=== PATIENT | female | born 1945 | race Caucasian/White ===

== ENCOUNTER 2019-07-14 07:49 | Outpatient (CLI) | payer MEDICARE, MEDICAID, SELFPAY ==
--- NOTE | 2019-07-14 07:58 | MR_ITS ---
WS: [id number] MRI LUMBAR SPINE NONCONTRAST TECHNIQUE: Sagittal T1, T2 and STIR imaging. Axial T1 and T2 imaging. CLINICAL INFORMATION: LOW BACK PAIN COMPARISON: None. FINDINGS: Mild lumbar curve convex left. Slight anterolisthesis L4 on L5. Disc space narrowing worse L4-5. L1-L2: Normal. L2-L3: Mild annular bulging. Mild facet arthropathy. Spinal canal and foramen are patent. L3-L4: Mild disc bulging with narrowing of the left greater than right subarticular recess. Slight im pingement traversing left L4 nerve root. Mild right foraminal narrowing. Mild central canal stenosis. Mild facet arthropathy. L4-L5: Slight anterolisthesis L4 on L5. Disc bulging in combination with moderate facet arthropathy a nd ligamentum flavum hypertrophy results in moderate central canal stenosis. Impingement on the trave rsing left L5 nerve root. Mild right foraminal narrowing. L5-S1: Mild annular bulging. Advanced arthropathy. Tiny facet effusions. Spinal canal and foramen ar e patent. Visualized pelvic bony structures: Normal. Paravertebral soft tissues: Normal. MR/MR lumbar spine wo con* [id number] IMPRESSION: 1. Mild lumbar curve. No acute compression. 2. Mild central canal stenosis L3-4 and moderate central canal stenosis L4-5. 3. Impingement on the left L3-4 subarticular recess and bilateral L4-5 subarti cular recess. 4. Mild right L3-4 and L4-5 foraminal narrowing. 5. Moderate facet arthropathy L4-L5 and L5-S1.
--- NOTE | 2019-07-14 07:58 | XR_ITS ---
WS: [id number] LUMBAR SPINE FLEXION AND EXTENSION TECHNIQUE: 3 views of the lumbar spine: Lateral neutral, flexion, and extension views. CLINICAL INFORMATION: SPONDYLOLISTHESIS LUMBAR REGION COMPARISON: None. FINDINGS: Slight anterolisthesis L4 on L5 measuring 4 mm in neutral position. No significant instability on fle xion-extension. Disc space narrowing worse at L3-L4 and L4-L5. Aortic calcification. XR/XR lumbar spine f/e only [id number] IMPRESSION: 4 mm anterolisthesis L4 on L5. No significant instability on flexion-extension.
== END 2019-07-14 07:50 | disposition home or self-care (01) ==
LOC: RADWPI 07:56
PROVIDERS: Family Provider Family Medicine; PCP Family Medicine; Visit Provider Nurse Practitioner
DX: M43.16 Spondylolisthesis, lumbar region (principal); M48.061 Spinal stenosis, lumbar region without neurogenic claudication; M54.5 Low back pain
CPT/HCPCS: 72120; 72148

== ENCOUNTER → 2019-09-15 15:32 | Outpatient (BNVA) | payer MEDICARE, MEDICAID, SELFPAY | PROVIDERS: Family Provider Family Medicine; PCP Family Medicine; Visit Provider Specialist | DX: G31.83 Neurocognitive disorder with Lewy bodies (principal); F02.80 Dementia in other diseases classified elsewhere, unspecified severity, without behavioral disturbance, psychotic disturbance, mood disturbance, and anxiety; Z87.891 Personal history of nicotine dependence | CPT/HCPCS: 99213 ==

== ENCOUNTER 2019-11-01 09:41 | Emergency (ER) | payer MEDICARE, MEDICAID, SELFPAY ==
[2019-11-01 09:42] VITALS: BMI 25.9
[2019-11-01 09:47] VITALS: BP 177/114; PULSE 88; RESP 20; TEMP 36.6; O2SAT 97
--- NOTE | 2019-11-01 09:53 | XRR_ITS ---
PROCEDURE INFORMATION: Exam: XR Right Shoulder Exam date and time: 11/01/2019 10:24 AM Age: 74 years old Clinical indication: Injury or trauma; Fall; Initial encounter; Blunt trauma (contusions or hematomas; Shoulder; Right TECHNIQUE: Imaging protocol: XR Right shoulder. Views: 2 or more views. COMPARISON: No relevant prior studies available. FINDINGS: Bones/joints: No acute fracture. No dislocation. Bones are diffusely osteopenic. Small osteophytes at the glenoid. Lungs: The right lung is clear. Soft tissues: No soft tissue swelling. No radiopaque foreign body. XR/XR shoulder RT min 2V* [id number] IMPRESSION: 1. No acute fracture. Followup imaging recommended in 7-14 days if clinical concern for fracture persists. 2. Incidental/nonacute findings are listed in the report.
--- NOTE | 2019-11-01 09:53 | CTR_ITS ---
PROCEDURE INFORMATION: Exam: CT Head Without Contrast Exam date and time: 11/01/2019 9:55 AM Age: 74 years old Clinical indication: Injury or trauma; Fall TECHNIQUE: Imaging protocol: Computed tomography of the head without contrast. Axial, coronal and sagittal reformatted images were created and reviewed. Radiation optimization: All CT scans at this facility use at least one of these dose optimization techniques: automated exposure control; mA and/or kV adjustment per patient size (includes targeted exams where dose is matched to clinical indication); or iterative reconstruction. COMPARISON: MR head wo con* [id number] 11/30/2016 10:35 AM RADIATION DOSE METRICS: Total DLP (mGy-cm): 742.83 FINDINGS: Brain: Subtle, patchy areas of hypoattenuation in the periventricular and subcortical white matter, nonspecific but suggestive of mild chronic small vessel ischemic disease. No CT evidence of acute intracranial hemorrhage or acute territorial infarction. No significant mass effect or midline shift. Basal cisterns patent. Ventricles: Prominence of the cortical sulci, cisterns and ventricular system, consistent with cerebral and cerebellar volume loss. Bones/joints: No acute osseous abnormality. Sinuses: Minimal ethmoid mucosal thickening. Mastoid air cells: Grossly unremarkable. Vasculature: Calcific atherosclerotic disease in the cavernous internal carotid arteries. Soft tissues: Grossly unremarkable. CT/CT head wo con* [id number] IMPRESSION: 1. No CT evidence of acute intracranial pathology. 2. Additional findings, as above. Radiation Dose CTDIVOL = (mGy): DLP = 742.83 (mGy-cm)
--- NOTE | 2019-11-01 09:53 | CTR_ITS ---
PROCEDURE INFORMATION: Exam: CT Cervical Spine Without Contrast Exam date and time: 11/01/2019 9:54 AM Age: 74 years old Clinical indication: Injury or trauma; Fall; Initial encounter; Blunt trauma TECHNIQUE: Imaging protocol: Computed tomography images of the cervical spine without contrast. Axial, coronal and sagittal reformatted images were created and reviewed. Radiation optimization: All CT scans at this facility use at least one of these dose optimization techniques: automated exposure control; mA and/or kV adjustment per patient size (includes targeted exams where dose is matched to clinical indication); or iterative reconstruction. COMPARISON: No relevant prior studies available. RADIATION DOSE METRICS: Total DLP (mGy-cm): 494.11 FINDINGS: Vertebrae: Osteopenia. Slight reversal of the normal cervical lordosis. Minimal anterolisthesis of C4 on C5 and retrolisthesis of C6 on C7. Alignment otherwise anatomic. No CT evidence of acute fracture, dislocation or subluxation. Vertebral body heights maintained. Discs/Spinal canal/Neural foramina: Mild multilevel degenerative changes, characterized by disc space narrowing, osteophytosis and uncovertebral and facet joint hypertrophy. Mild multilevel spinal canal and neural foraminal narrowing, most notably at C5-C6 and C6-C7. Soft tissues: Grossly unremarkable. Lungs: Grossly unremarkable. CT/CT cervical spin wo con* [id number] IMPRESSION: 1. No CT evidence of acute cervical spine traumatic injury. 2. Additional findings, as above. Radiation Dose CTDIVOL = (mGy): DLP = 494.11 (mGy-cm)
--- NOTE | 2019-11-01 09:53 | XRR_ITS ---
PROCEDURE INFORMATION: Exam: XR Right Knee Exam date and time: 11/01/2019 10:20 AM Age: 74 years old Clinical indication: Injury or trauma; Fall; Initial encounter; Blunt trauma; Knee; Right TECHNIQUE: Imaging protocol: XR Right knee. Views: 3 views. COMPARISON: No relevant prior studies available. FINDINGS: Bones/joints: No acute fracture. No dislocation. Normal bone mineralization. No joint effusion. Joint spaces are maintained. Soft tissues: No soft tissue swelling. No radiopaque foreign body. XR/XR knee RT 3V* [id number] IMPRESSION: No acute fracture. Followup imaging recommended in 7-14 days if clinical concern for fracture persists.
--- NOTE | 2019-11-01 09:54 | W.ED.FALL ---
HPI - Fall General: Chief Complaint: Fall Stated Complaint: HEAD AND KNEE PAIN S/P FALL Time Seen by Provider: 11/01/19 09:44 History of Present Illness: HPI Narrative: Patient arrived via ambulance with history of a fall this morning. Patient tripped on sidewalk and hit the complex of mailboxes outside her apartment building striking the right side of her head. She has abrasion above her right ear that she is complained about that was bleeding complains about pain in the right side of the head and also right shoulder and right knee she did not ambulate after the fall but able to move lower extremities without difficulty complaint: fall Onset (ago): minute(s) Fall from: standing Fall witnessed: yes, by bystander Place fall occurred: home Loss of consciousness: None Prolonged down time: no Symptoms prior to fall: none Context: tripped/slipped Location of injury: head Location of injury - extremities: Right: shoulder and knee Severity: mild Quality: aching Associated symptoms-after fall: Reports no associated symptoms; Denies abdominal pain, chest pain or headache(s) Review of Systems Const: Denies: fever(s), chills or body aches Eyes: Denies: change in vision or blurry vision ENMT: Denies: throat pain or nasal congestion Card: Denies: chest pain or dyspnea on exertion Resp: Denies: dyspnea, productive cough or non-productive cough GI: Denies: abdominal pain, nausea or vomiting Musc: Reports: extremity pain and other (Right-sided head pain right knee right shoulder pain) Skin/Breast: Reports: other (Abrasion right ear); Denies: rash Neuro: Denies: headache(s) Psych: Denies: anxiety or depression Jero/Lymph: Denies: easy bruising PFSH ED PFSH: Medical History Anxiety Chronic back pain Dementia Depression Hyperlipidemia Hypothyroidism Parkinson disease Surgical History History of appendectomy History of hysterectomy History of tonsillectomy Hx of breast augmentation Hx of colonoscopy 4 years ago Family History Other CAD (coronary artery disease) Stroke Social History Smoking and tobacco status: former smoker Alcohol intake: former History of recent travel: No Physical Exam Const: COMMON NORMALS: no acute distress, average body habitus and patient oriented x3 HENMT: COMMON NORMALS: normocephalic HEAD & SCALP: normocephalic, abrasion (Right ear) and other (Tenderness to right occipital area behind the ear) FACE & SINUS: normal facial exam Eye: COMMON NORMALS: conjunctivae normal GENERAL EYE: appearance normal, both eyes and all related structures CONJUNCTIVA: Yes conjunctivae normal Neck/C-Spine: COMMON NORMALS: no JVD Chest: COMMONS NORMALS: normal inspection of the chest Resp: COMMON NORMALS: normal respiratory effort and clear to auscultation bilaterally AUSCULTATION: clear to auscultation bilaterally Cardio: COMMON NORMALS: no JVD, regular rate and regular rhythm RATE: regular rate RHYTHM: regular rhythm GI: COMMON NORMALS: Normal to inspection, nondistended, normoactive bowel sounds present Extremity: COMMON NORMALS: normal to inspection and full ROM RIGHT UPPER EXTREMITY: Yes shoulder joint (Tender with range of motion palpation) RIGHT LOWER EXTREMITY: Yes knee joint (Abrasion mild tenderness no swelling) Neuro: COMMON NORMALS: patient oriented x3 and CN's II-XII intact bilaterally Course Vital Signs: Vital signs: Vital Signs Temperature 97.9 F 11/01/19 09:47 Pulse Rate 88 11/01/19 09:47 Respiratory Rate 20 H 11/01/19 09:47 Blood Pressure 177/114 11/01/19 09:47 Pulse Oximetry 97 11/01/19 09:47 Discharge Plan Discharge Prescriptions: No Action levothyroxine 50 mcg capsule 50 mcg PO DAILY RF: 0 olopatadine 0.7 % drops 1 drop ophthalmic (eye) DAILY RF: 0 diphenhydramine HCl [Benadryl] 25 mg capsule 25 mg PO BID PRNRF: 0 hydrocodone-acetaminophen 5-325 mg tablet 1 tab PO Q8H PRNRF: 0 paroxetine HCl [Paxil] 10 mg tablet 10 mg PO DAILY RF: 0 levothyroxine 75 mcg capsule 75 mcg PO DAILY RF: 0 buspirone 15 mg tablet 15 mg PO BID RF: 0 carbidopa-levodopa 25-100 mg tablet 1 tab PO BID RF: 0 Combivent Respimat 20-100 mcg/actuation mist 1 puff INHALATION Q6H RF: 0 glucosamine HCl 1,500 mg tablet 1,500 mg PO DAILY RF: 0 Taliaferro Blue [place]-3 + D3 350 mg- 1,000 unit capsule 1 cap PO DAILY RF: 0 calcium carbonate 500 mg calcium (1,250 mg) tablet 500 mg PO DAILY RF: 0 donepezil 10 mg tablet 10 mg PO DAILY Qty: 30 RF: 5 quetiapine [Seroquel] 25 mg tablet 25 mg PO DAILY Qty: 30 RF: 3 Coding Level of Care Code ED Substance Abuse Counselor for Haven Angelo
--- NOTE | 2019-11-01 09:59 | PC.NURSE ---
Pt to CT
[2019-11-01 10:30] VITALS: BP 208/97; PULSE 67; RESP 20; O2SAT 99
[2019-11-01] MEDS: tetanus-dipt-pertussis 0.5 mL SDV IM (10:32)
--- NOTE | 2019-11-01 10:46 | XRR_ITS ---
PROCEDURE INFORMATION: Exam: XR Lumbosacral Spine, 2 or 3 Views Exam date and time: 11/01/2019 10:47 AM Age: 74 years old Clinical indication: Injury or trauma; Fall; Initial encounter; Blunt trauma (contusions or hematomas) TECHNIQUE: Imaging protocol: XR of the lumbosacral spine, 2 or 3 views. COMPARISON: No relevant prior studies available. FINDINGS: Vertebrae: Vertebral body height is maintained. Multilevel degenerative changes of varying severity in the visualized spine. Grade I anterolisthesis of L4 on L5, possibly due to facet degenerative change. No acute fracture. Mild levoscoliosis in the visualized spine. Bones are diffusely osteopenic. Organs: Small calcifications projecting over the right renal shadow. Vasculature: Atherosclerotic changes in the visualized arteries. Soft tissues: No paravertebral soft tissue abnormality. No radiopaque foreign body. XR/XR lumbar spine 2-3V* [id number] IMPRESSION: 1. No acute fracture of the lumbar spine. 2. Multilevel degenerative changes of varying severity in the visualized spine. 3. Grade I anterolisthesis of L4 on L5, possibly due to facet degenerative change. 4. Mild levoscoliosis in the visualized spine. 5. Small calcifications projecting over the right renal shadow. If there is clinical concern for urolithiasis, further evaluation with noncontrasted CT scan of the abdomen and pelvis may be obtained. 6. Incidental/nonacute findings are listed in the report.
[2019-11-01 11:05] VITALS: BP 201/104; PULSE 65; RESP 18; O2SAT 94
[2019-11-01] MEDS: ketorolac 30 mg/mL INJ IVP (11:06)
[2019-11-01 11:36] VITALS: PULSE 70; RESP 18; O2SAT 95
--- NOTE | 2019-11-01 11:36 | PC.NURSE ---
Pt placed on bed meza to void.
[2019-11-01 12:32] VITALS: BP 197/72; PULSE 71; RESP 18; O2SAT 95
== END 2019-11-01 12:33 | disposition home or self-care (01) ==
PROVIDERS: Emergency Provider Nurse Practitioner Family; Family Provider Family Medicine; PCP Family Medicine
DX: S00.411A Abrasion of right ear, initial encounter (principal); W01.198A Fall on same level from slipping, tripping and stumbling with subsequent striking against other object, initial encounter; G20 Parkinson's disease; F02.80 Dementia in other diseases classified elsewhere, unspecified severity, without behavioral disturbance, psychotic disturbance, mood disturbance, and anxiety; E78.5 Hyperlipidemia, unspecified; Z87.891 Personal history of nicotine dependence; Z23 Encounter for immunization
CPT/HCPCS: 12345; 70450; 72100; 72125; 73030; 73562; 90471; 90715; 96374; 96375; 99283; J1885

== ENCOUNTER 2020-04-28 16:38 | Outpatient (CLI) | payer MEDICARE, MEDICAID, SELFPAY ==
[2020-04-28 17:38] LABS: Free T4 Free Thyroxine 1.13 ng/dL (0.82-1.77)
== END 2020-04-28 16:39 | disposition home or self-care (01) ==
PROVIDERS: PCP Family Medicine; Visit Provider Internal Medicine
DX: E03.9 Hypothyroidism, unspecified (principal)
CPT/HCPCS: 36415; 84439; 84443; 99203

== ENCOUNTER 2020-05-28 11:37 | Emergency (ER) | payer MEDICARE, MEDICAID, SELFPAY ==
[2020-05-28 11:46] VITALS: BP 130/85; PULSE 81; RESP 20; TEMP 36.3; O2SAT 96; BMI 27.4
--- NOTE | 2020-05-28 12:40 | XR_ITS ---
WS: [id number] PORTABLE CHEST HISTORY: Vertigo. COMPARISON: 10/18/2014 Very slight elevation of the RIGHT diaphragm. Lungs are slightly hyperinflated. No pneumonia. Normal vasculature. No pleural effusion or pneumothorax. Cardiac size: Normal. Mediastinum/Aorta: Mild atherosclerosis aorta. No osseous abnormality seen. XR/XR chest 1V portable [id number] IMPRESSION: Mild atherosclerosis aorta. No acute cardiopulmonary disease.
--- NOTE | 2020-05-28 12:40 | ECG_ITS ---
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 [email or web address].[id number]
--- NOTE | 2020-05-28 12:40 | CT_ITS ---
WS: [id number] CT HEAD NONCONTRAST HISTORY: Symptoms of Acute Stroke TECHNIQUE: Contiguous axial imaging performed through the brain in 2.5 mm imaging. Bone and soft tiss ue windows. Sagittal and coronal reformats reviewed. All CT scans at [facility] use at ast one of these dose optimization techniques: automated exposure control; mA and/or kV adjustment pe r patient size (includes targeted exams where dose is matched to clinical indication); or iterative r econstruction. DLP: 661.07 mGy.cm COMPARISON: 11/01/2019 No acute intracranial hemorrhage, midline shift or mass effect. Mild atrophy and mild chronic microvascular ischemic changes. No acute or subacute infarcts. No cereb ellar abnormality. Ventricles: Normal size with no hydrocephalus. Paranasal sinuses: As visualized are clear. Mastoid air cells: Well pneumatized. Calvarium and scalp: Skull is intact with no soft tissue edema or swelling. Scattered calcifications within the intracranial carotid arteries. CT/CT head wo con* [id number] IMPRESSION: 1. No acute infarct or hemorrhage. 2. Mild cerebral atrophy and mild chronic microvascular ischemic disease.
[2020-05-28 12:43] VITALS: BP 188/80; PULSE 70; RESP 18; O2SAT 95
[2020-05-28] MEDS: ondansetron 2 mg/ML SDV 2 mL 4 MG IVP (13:17)
[2020-05-28] MEDS: meclizine 25 mg tablet PO (13:17)
[2020-05-28 13:34] LABS: Basophils # 0.1 10^3/uL (0.0-0.1); Basophils % 0.4 %; Eosinophils # 0.1 10^3/uL (0.0-0.8); Eosinophils % 0.3 %; Hematocrit 44.9 % (37.0-47.0); Hemoglobin 14.2 g/dL (11.5-15.3); Lymphocytes # 2.4 10^3/uL (0.8-4.8); Lymphocytes % 16.9 %; Mean Corpuscular HGB Conc 31.6 g/dL (30.0-36.0); Mean Corpuscular Hemoglobin 27.9 pg (28.0-34.0); Mean Corpuscular Volume 88.2 fL (81-99); Mean Platelet Volume 10.2 fL (7.4-10.4); Monocytes # 0.9 10^3/uL (0.2-0.9); Monocytes % 6.5 %; Neutrophils # 10.67 10^3/uL (1.8-7.7); Neutrophils % 74.4 %; Nucleated Red Blood Cells % 0 %; Platelet Count 283 10^3/cmm (130-400); Red Blood Count 5.09 10^6/uL (4.1-5.3); Red Cell Distribution Width 13.2 % (12.1-15.1); White Blood Count 14.4 10^3/uL (4.0-10.0)
[2020-05-28 13:36] LABS: Urine Color Yellow (Yellow)
[2020-05-28 13:37] LABS: Add Urine Microscopic? YES; Bacteria Urine 2+ /hpf; Bilirubin Urine Neg (Negative); Blood Urine Neg (Negative); Glucose Urine UA Norm (Normal); Ketones Urine 1+ (Negative); Leukocyte Esterase Urine 1+ (Negative); Mucus Urine 1+ /hpf; Nitrate Urine Negative (Negative); Protein Urine Neg (Negative); RBC Urine 0-4 /hpf (0-2); Specific Gravity, Urine 1.025 (1.005-1.030); Squamous Epithelial Cell Urine 15-25 /hpf (0-5); Urine Appearance SL Hazy (CLEAR); Urobilinogen Urine Norm (Negative); WBC Urine 15-25 /hpf (0-5); pH Urine 5 (5-7)
[2020-05-28 13:40] LABS: Amphetamines Screen Urine Negative (Negative); Barbiturates Screen Urine Negative (Negative); Benzodiazepines Screen Urine Negative (Negative); Cocaine Screen Urine Negative (Negative); Opiate Screen Urine Positive (Negative); PCP Screen Urine Negative (Negative); THC Screen Urine Negative (Negative)
[2020-05-28 13:45] LABS: Partial Thromboplastin Time 28.9 SECONDS (23.9-36.7)
[2020-05-28 13:51] LABS: Alanine Aminotransferase 31 U/L (0-33); Albumin Level 4.1 g/dL (3.5-5.2); Alkaline Phosphatase 155 IU/L (35-105); Anion Gap 19.1 (5-19); Aspartate Amino Transferase 47 U/L (0-32); Blood Urea Nitrogen 9 mg/dL (8-23); Calcium 9.5 mg/dL (8.5-10.5); Carbon Dioxide 24 mmol/L (22-29); Chloride 103 mmol/L (98-107); Creatinine Clr Calc Pharmacy 62.0648; Globulin 3.4 g/dL (1.3-4.6); Glucose 173 mg/dL (65-115); Osmolality Calculated 297 mOsm/kg (285-295); Potassium 4.1 mmol/L (3.5-5.1); Sodium 142 mmol/L (136-145); Total Bilirubin 0.5 mg/dL (0.15-1.2); Total Protein 7.5 g/dL (6.6-8.7)
[2020-05-28 14:00] VITALS: BP 165/60; PULSE 75; RESP 15; O2SAT 96
--- NOTE | 2020-05-28 14:10 | CT_ITS ---
WS: [id number] CT ANGIOGRAM CEREBRAL AND CAROTID ARTERIES HISTORY: vertigo, ataxia TECHNIQUE: CT angiogram is performed of the carotid and cerebral arteries. During arterial injection imaging is obtained from the skull vertex to the aortic arch in 1.25 mm imaging. Coronal and sagittal reformats are submitted. Additional multi planar reformats of the carotid and cerebral arteries are submitted, MIP imaging also reviewed. NASCET criteria utilized. All CT scans at [facility] use at least one of these dose optimization techniques: automated exposure control; mA and/or kV ad justment per patient size (includes targeted exams where dose is matched to clinical indication); or iterative reconstruction. CONTRAST: Omnipaque 350; 95 mL IV. DLP: 1756.06 mGy.cm COMPARISON: None available. Carotid Angiogram: Right carotid: Common carotid artery: Arises normally from the innominate artery. No significant plaque or stenosis. Internal carotid artery: Mild atherosclerotic plaque at the bifurcation with no high-grade stenosis. External carotid artery: Patent. Left carotid: Common carotid artery: Arises normally from the aorta. No significant plaque or stenosis. Internal carotid artery: Small amount of calcified plaque at the bifurcation. No significant stenosis . External carotid artery: Patent. Right vertebral artery: Unremarkable. Left vertebral artery: Unremarkable. Arises normally from the subclavian artery. Subclavian arteries: Proximal RIGHT subclavian is obscured by artifact from the contrast injection. L EFT subclavian is negative. Upper thorax: Chronic emphysema. No nodules or mass. Mild atherosclerosis at the aortic arch. Thyroid gland: Normal. Osseous structures: Mild cervical spondylosis. CEREBRAL ANGIOGRAM: Intracranial vertebral arteries: Normal with no significant atherosclerosis. Basilar artery: No significant stenosis or occlusion. No aneurysm. Intracranial Internal carotid arteries: Mild scattered plaque with no stenosis. No aneurysm. Middle cerebral arteries: Normal. Anterior cerebral arteries and ACOM: Normal. Posterior cerebral arteries and PCOM's: Normal. Dural venous sinuses are normally enhancing. Mastoid air cells: Normal. Paranasal sinuses: Normal. Calvarium: Normal. CT/CT angio headneck* [id number] IMPRESSION: 1. No significant carotid artery stenosis. There is a small amount calcified p laque with stenosis much less than 50%. 2. Mild atherosclerosis of the intracranial carotid arteries. No aneurysms or high-grade stenosis.
--- NOTE | 2020-05-28 14:35 | W.ED.NEUROSD ---
HPI - Neuro Symptoms/Deficit General: Chief Complaint: Neuro Symptoms/Deficit Stated Complaint: ABNORMAL EYE MOVEMENTS Time Seen by Provider: 05/28/20 12:12 Source: patient and family (daughter) Mode of arrival: ambulatory Limitations: no limitations History of Present Illness: HPI Narrative: This is a 74-year-old female patient with a history of Lewy body dementia and hypothyroidism who presents to the emergency department with complaints of dizziness and abnormal eye movements. According to the patient and her daughter she noticed yesterday that her eyes seem to be moving abnormally with associated vertigo which she describes as the room spinning. Symptoms are worse when she turns her head side to side. She has had episodes of nausea and vomiting with this. She also has generalized weakness but no focal weakness. No history of vertigo. No chest pain, no difficulty breathing. Onset (ago): day(s) (1, a little over 24 hours) History of same: No Severity: moderate Relieving factors: none Exacerbating factors: none Context: sudden onset Associated symptoms: Reports nausea and vomiting; Deny chest pain, cough, diaphoresis, fevers/chills, headache(s), anorexia, malaise, seizures, short of breath, syncope, tingling, vertigo or weakness Treatments Prior to Arrival: none Review of Systems General: Reports: 10 or more systems reviewed and unremarkable except in HPI and below Const: Denies: malaise or diaphoresis Eyes: Denies: change in vision or blurry vision ENMT: Denies: throat pain, enlarged tonsils, odynophagia, hoarseness, mouth pain or swelling of lips/tongue Card: Denies: chest pain or syncope Resp: Denies: dyspnea, productive cough or non-productive cough GI: Reports: nausea and vomiting : Denies: flank pain, difficulty voiding, dysuria, urinary frequency, urinary urgency or urinary hesitancy Musc: Denies: neck pain, back pain or extremity swelling Skin/Breast: Denies: rash, pruritus or erythema Neuro: Denies: headache(s) or vertigo Endo: Denies: polyuria, polydipsia or tired all the time [facility] PFSH: Medical History Anxiety Chronic back pain Dementia Depression Hyperlipidemia Hypothyroidism Parkinson disease Surgical History History of appendectomy History of hysterectomy History of tonsillectomy Hx of breast augmentation Hx of colonoscopy 4 years ago Family History Mother , from 97 Psychiatric illness dementia Macular degeneration Father , at the age of 56 Recurrent strokes Myocardial infarct Other CAD (coronary artery disease) Stroke Social History Smoking and tobacco status: former smoker Alcohol intake: former History of recent travel: No NIH stroke score NIHSS: Level Of Consciousness - 1a: 0 Level Of Consciousness Questions - 1b: Both Correct Level Of Consciousness Commands - 1c: Both Correct Best Gaze - 2: Normal Visual Martinez - 3: No Visual Loss Facial Palsy - 4: Normal Motor Arm Right - 5: No Drift Motor Arm Left - 5: No Drift Motor Leg Right - 6: No Drift Motor Leg Left - 6: No Drift Limb Ataxia - 7: Present In Two Limbs Sensory - 8: Normal Best Language - 9: No Aphasia Dysarthia - 10: Normal Extinction And Inattention - 11: 0 Score: Total Score: 2 Physical Exam Const: COMMON NORMALS: no acute distress, average body habitus, patient oriented x3, no limitations, healthy appearing, alert and well nourished HENMT: COMMON NORMALS: normocephalic, atraumatic and moist oral mucous membranes HEAD & SCALP: normocephalic and atraumatic Eye: COMMON NORMALS: Equal, round and reactive pupils present, EOMs intact bilaterally, conjunctivae normal and no scleral icterus CONJUNCTIVA: Yes conjunctivae normal PUPIL: Yes Equal, round and reactive pupils present EOM: Yes Nystagmus present (bilateral) Nystagmus Noted: positive horizontal, positive rotary and positive within normal field of vision Neck/C-Spine: COMMON NORMALS: full ROM, supple, no meningeal signs, no JVD and No carotid bruits Chest: COMMONS NORMALS: normal inspection of the chest and normal palpation of entire chest wall Resp: COMMON NORMALS: normal respiratory effort, No retractions, No use of accessory muscles, clear to auscultation bilaterally and percussion normal AUSCULTATION: clear to auscultation bilaterally PERCUSSION: percussion normal Cardio: COMMON NORMALS: no JVD, regular rate, regular rhythm, S1 normal heart sound present, S2 normal heart sound present, No gallops present (Cardio), No clicks present (Cardio), No murmurs present (Cardio), No rub (Cardio) and Peripheral pulses 2+ throughout RATE: regular rate RHYTHM: regular rhythm HEART SOUNDS: S1 normal heart sound present and S2 normal heart sound present PERIPHERAL PULSES: Peripheral pulses 2+ throughout GI: COMMON NORMALS: Normal to inspection, nondistended, normoactive bowel sounds present, Soft to palpation, non-tender, No hepatosplenomegaly present, no masses and no bruits PALPATION: Yes Soft to palpation and Yes No hepatosplenomegaly present Extremity: COMMON NORMALS: normal to inspection, full ROM, capillary refill normal, no calf tenderness and no pedal edema Neuro: COMMON NORMALS: patient oriented x3 SENSORIUM/ORIENTATION: Yes alert MENINGEAL SIGNS: Yes no meningeal signs Skin: COMMON NORMALS: no rashes or lesions noted, no wounds, turgor normal, no jaundice, no petechiae and no mottling GENERAL SKIN EXAM: no rashes or lesions noted and turgor normal Course Reevaluation(s): Reevaluation #1: Discussed her lab and imaging findings with her. Initial head CT negative, other labs unremarkable. Vertigo is a little better but she still has it. We will try lorazepam and see if that improves her symptoms. We will also order a head and neck CTA to check for cerebellar ischemia. Patient and her daughter voiced understanding and they are in agreement with the plan. Time: 14:36 Reevaluation #2: Discussed her CTA findings with her - negative for acute findings. Still having significant vertigo. I offered hospital admission but she declined and wants to be discharged home. She will f/u with her PCP and i will make appointments Time: 15:57 Vital Signs: Vital signs: Vital Signs Temperature 97.4 F L 05/28/20 11:46 Pulse Rate 75 05/28/20 17:01 Respiratory Rate 15 05/28/20 17:01 Blood Pressure 165/60 05/28/20 17:01 Pulse Oximetry 96 05/28/20 17:01 MDM - Neuro Symptoms/Deficit MDM Narrative: Medical decision making narrative: 74-year-old female patient who presents to the emergency department with vertigo and nystagmus that started yesterday. Evaluation in the emergency department showed a negative head CT and a negative head and neck CTA. Other labs unremarkable. Mildly elevated white cell count which is nonspecific. She was given medication for vertigo which helped a little bit but did not relieve her symptoms. She was offered admission but she declined and would like to go home. She did say she would return if her symptoms got any worse or if she did not improve significantly. Her daughter will stay with her while her symptoms persist. Medical Records: Attestation: I reviewed the patient's medical records. Lab Data: Attestation: I reviewed the patient's lab results. Labs: Lab Results 05/28/20 05/28/20 05/28/20 Range/Units 13:11 13:11 13:20 WBC 14.4 H (4.0-10.0) 10^3/ uL RBC 5.09 (4.1-5.3) 10^6/u L Hgb 14.2 (11.5-15.3) g/dL Hct 44.9 (37.0-47.0) % MCV 88.2 (81-99) fL MCH 27.9 L (28.0-34.0) pg MCHC 31.6 (30.0-36.0) g/dL RDW 13.2 (12.1-15.1) % Plt Count 283 (130-400) 10^3/c mm MPV 10.2 (7.4-10.4) fL Neut % (Auto) 74.4 % Lymph % (Auto) 16.9 % [place] % (Auto) 6.5 % Eos % (Auto) 0.3 % Baso % (Auto) 0.4 % Neut # (Auto) 10.67 H (1.8-7.7) 10^3/u L Lymph # (Auto) 2.4 (0.8-4.8) 10^3/u L [place] # (Auto) 0.9 (0.2-0.9) 10^3/u L Eos # (Auto) 0.1 (0.0-0.8) 10^3/u L Baso # (Auto) 0.1 (0.0-0.1) 10^3/u L Nucleated RBC % (a uto) 0 % Nucleated RBCs # 0.0 /100WBC PT (12.1-14.9) SECO NDS INR (0.8-1.2) APTT (23.9-36.7) SECO NDS Sodium (136-145) mmol/L Potassium (3.5-5.1) mmol/L Chloride (98-107) mmol/L Carbon Dioxide (22-29) mmol/L Anion Gap (5-19) BUN (8-23) mg/dL Creatinine (0.5-0.9) mg/dL GFR Calculation Glucose (65-115) mg/dL Calculated Osmolal ity (285-295) mOsm/k g Calcium (8.5-10.5) mg/dL Total Bilirubin (0.15-1.2) mg/dL AST (0-32) U/L ALT (0-33) U/L Alkaline Phosphata se (35-105) IU/L Total Protein (6.6-8.7) g/dL Albumin (3.5-5.2) g/dL Globulin (1.3-4.6) g/dL Urine Color Yellow (Yellow) Urine Appearance Sl hazy (CLEAR) Urine pH 5 (5-7) Ur Specific Gravit y 1.025 (1.005-1.030) Urine Protein Neg (Negative) Urine Glucose (UA) Norm (Normal) Urine Ketones 1+ H (Negative) Urine Blood Neg (Negative) Urine Nitrate Negative (Negative) Urine Bilirubin Neg (Negative) Urine Urobilinogen Norm (Negative) mg/dL Ur Leukocyte Myra ase 1+ H (Negative) Urine RBC 0-4 H (0-2) /hpf Urine WBC 15-25 H (0-5) /hpf Ur Squamous Epith Cells 15-25 H (0-5) /hpf Amorphous Sediment Not Reportable Urine Bacteria 2+ H (NONE) /hpf Urine Mucus 1+ /hpf Urine Opiates Scre en Positive H (Negative) ng/mL Ur Barbiturates Sc reen Negative (Negative) ng/mL Ur Phencyclidine S crn Negative (Negative) ng/mL Ur Amphetamines Sc reen Negative (Negative) ng/mL U Benzodiazepines Scrn Negative (Negative) ng/mL Urine Cocaine Scre en Negative (Negative) ng/mL U Marijuana (THC) Screen Negative (Negative) ng/mL 05/28/20 05/28/20 Range/Units 13:20 13:20 WBC (4.0-10.0) 10^3/ uL RBC (4.1-5.3) 10^6/u L Hgb (11.5-15.3) g/dL Hct (37.0-47.0) % MCV (81-99) fL MCH (28.0-34.0) pg MCHC (30.0-36.0) g/dL RDW (12.1-15.1) % Plt Count (130-400) 10^3/c mm MPV (7.4-10.4) fL Neut % (Auto) % Lymph % (Auto) % [place] % (Auto) % Eos % (Auto) % Baso % (Auto) % Neut # (Auto) (1.8-7.7) 10^3/u L Lymph # (Auto) (0.8-4.8) 10^3/u L [place] # (Auto) (0.2-0.9) 10^3/u L Eos # (Auto) (0.0-0.8) 10^3/u L Baso # (Auto) (0.0-0.1) 10^3/u L Nucleated RBC % (a uto) % Nucleated RBCs # /100WBC PT 13.50 (12.1-14.9) SECO NDS INR 1.00 (0.8-1.2) APTT 28.9 (23.9-36.7) SECO NDS Sodium 142 (136-145) mmol/L Potassium 4.1 (3.5-5.1) mmol/L Chloride 103 (98-107) mmol/L Carbon Dioxide 24 (22-29) mmol/L Anion Gap 19.1 H (5-19) BUN 9 (8-23) mg/dL Creatinine 0.6 (0.5-0.9) mg/dL GFR Calculation Not Reportable Glucose 173 H (65-115) mg/dL Calculated Osmolal ity 297 H (285-295) mOsm/k g Calcium 9.5 (8.5-10.5) mg/dL Total Bilirubin 0.5 (0.15-1.2) mg/dL AST 47 H (0-32) U/L ALT 31 (0-33) U/L Alkaline Phosphata se 155 H (35-105) IU/L Total Protein 7.5 (6.6-8.7) g/dL Albumin 4.1 (3.5-5.2) g/dL Globulin 3.4 (1.3-4.6) g/dL Urine Color (Yellow) Urine Appearance (CLEAR) Urine pH (5-7) Ur Specific Gravit y (1.005-1.030) Urine Protein (Negative) Urine Glucose (UA) (Normal) Urine Ketones (Negative) Urine Blood (Negative) Urine Nitrate (Negative) Urine Bilirubin (Negative) Urine Urobilinogen (Negative) mg/dL Ur Leukocyte Myra ase (Negative) Urine RBC (0-2) /hpf Urine WBC (0-5) /hpf Ur Squamous Epith Cells (0-5) /hpf Amorphous Sediment Urine Bacteria (NONE) /hpf Urine Mucus /hpf Urine Opiates Scre en (Negative) ng/mL Ur Barbiturates Sc reen (Negative) ng/mL Ur Phencyclidine S crn (Negative) ng/mL Ur Amphetamines Sc reen (Negative) ng/mL U Benzodiazepines Scrn (Negative) ng/mL Urine Cocaine Scre en (Negative) ng/mL U Marijuana (THC) Screen (Negative) ng/mL Imaging Data^: CXR: Attestation: I personally reviewed and interpreted this imaging study as follows: Radiologist's impression: [address] [address] XRay Report Signed Patient: Iesha Corbett AUnit #: [id number] : 8Acct#:[id number] Age/Sex: 74 / FADM Date: 05/28/20 Loc: ERRoo/Bed: Attending Dr: Ordering Provider/Ordering MD: Isaac Rock MD, [facility] Date of Service: 05/28/20 Procedure(s): XR chest 1V portable [id number] Accession Number(s): [id number] Report Number: [id number] WS: [id number] PORTABLE CHEST HISTORY: Vertigo. COMPARISON: 10/18/2014 Very slight elevation of the RIGHT diaphragm. Lungs are slightly hyperinflated. No pneumonia. Normal vasculature. No pleural effusion or pneumothorax. Cardiac size: Normal. Mediastinum/Aorta: Mild atherosclerosis aorta. No osseous abnormality seen. XR/XR chest 1V portable [id number] IMPRESSION: Mild atherosclerosis aorta. No acute cardiopulmonary disease. Dictated By:Ary Javier DO Signed By:Ary Javier DOSigned Date/Time:05/28/20 1249 DD/ 1248 CT Head: Attestation: I personally reviewed and interpreted this imaging study as follows: Radiologist's impression: [address] [address] [address] Scan Report Signed Patient: Iesha Corbett #: [id number] : 8Acct#:[id number] Age/Sex: 74 / FADM Date: 05/28/20 Loc: ERRoom/Bed: Attending Dr: Ordering Provider/Ordering MD: Isaac Rock MD, [facility] Date of Service: 05/28/20 Procedure(s): CT head wo con* [id number] Accession Number(s): [id number] Report Number: [id number] WS: [id number] CT HEAD NONCONTRAST HISTORY: Symptoms of Acute Stroke TECHNIQUE: Contiguous axial imaging performed through the brain in 2.5 mm imaging. Bone and soft tissue windows. Sagittal and coronal reformats reviewed. All CT scans at [facility] use at least one of these dose optimization techniques: automated exposure control; mA and/or kV adjustment per patient size (includes targeted exams where dose is matched to clinical indication); or iterative reconstruction. DLP: 661.07 mGy.cm COMPARISON: 11/01/2019 No acute intracranial hemorrhage, midline shift or mass effect. Mild atrophy and mild chronic microvascular ischemic changes. No acute or subacute infarcts. No cerebellar abnormality. Ventricles: Normal size with no hydrocephalus. Paranasal sinuses: As visualized are clear. Mastoid air cells: Well pneumatized. Calvarium and scalp: Skull is intact with no soft tissue edema or swelling. Scattered calcifications within the intracranial carotid arteries. CT/CT head wo con* [id number] IMPRESSION: 1. No acute infarct or hemorrhage. 2. Mild cerebral atrophy and mild chronic microvascular ischemic disease. Dictated By:Ary Javier DO Signed By:Ary Javier DOSigned Date/Time:05/28/20 1308 DD/ [address]: Attestation: I personally reviewed and interpreted this imaging study as follows: Radiologist's impression: [facility] [address] [place] [address] CT Scan Report Signed Patient: Iesha Corbett #: [id number] : 8Acct#:[id number] Age/Sex: 74 / FADM Date: 05/28/20 Loc: ERRoom/Bed: Attending Dr: Ordering Provider/Ordering MD: Isaac Rock MD, [facility] Date of Service: 05/28/20 Procedure(s): CT angio headneck* [id number] Accession Number(s): [id number] Report Number: [id number] WS: [id number] CT ANGIOGRAM CEREBRAL AND CAROTID ARTERIES HISTORY: vertigo, ataxia TECHNIQUE: CT angiogram is performed of the carotid and cerebral arteries. During arterial injection imaging is obtained from the skull vertex to the aortic arch in 1.25 mm imaging. Coronal and sagittal reformats are submitted. Additional multi planar reformats of the carotid and cerebral arteries are submitted, MIP imaging also reviewed. NASCET criteria utilized. All CT scans at [facility] use at least one of these dose optimization techniques: automated exposure control; mA and/or kV adjustment per patient size (includes targeted exams where dose is matched to clinical indication); or iterative reconstruction. CONTRAST: Omnipaque 350; 95 mL IV. DLP: 1756.06 mGy.cm COMPARISON: None available. Carotid Angiogram: Right carotid: Common carotid artery: Arises normally from the innominate artery. No significant plaque or stenosis. Internal carotid artery: Mild atherosclerotic plaque at the bifurcation with no high-grade stenosis. External carotid artery: Patent. Left carotid: Common carotid artery: Arises normally from the aorta. No significant plaque or stenosis. Internal carotid artery: Small amount of calcified plaque at the bifurcation. No significant stenosis. External carotid artery: Patent. Right vertebral artery: Unremarkable. Left vertebral artery: Unremarkable. Arises normally from the subclavian artery. Subclavian arteries: Proximal RIGHT subclavian is obscured by artifact from the contrast injection. LEFT subclavian is negative. Upper thorax: Chronic emphysema. No nodules or mass. Mild atherosclerosis at the aortic arch. Thyroid gland: Normal. Osseous structures: Mild cervical spondylosis. CEREBRAL ANGIOGRAM: Intracranial vertebral arteries: Normal with no significant atherosclerosis. Basilar artery: No significant stenosis or occlusion. No aneurysm. Intracranial Internal carotid arteries: Mild scattered plaque with no stenosis. No aneurysm. Middle cerebral arteries: Normal. Anterior cerebral arteries and ACOM: Normal. Posterior cerebral arteries and PCOM's: Normal. Dural venous sinuses are normally enhancing. Mastoid air cells: Normal. Paranasal sinuses: Normal. Calvarium: Normal. CT/CT angio headneck* [id number] IMPRESSION: 1. No significant carotid artery stenosis. There is a small amount calcified plaque with stenosis much less than 50%. 2. Mild atherosclerosis of the intracranial carotid arteries. No aneurysms or high-grade stenosis. Dictated By:Ary Javier DO Signed By:Ary Javier DOSigned Date/Time:05/28/20 1509 DD/ 1502 EKG Data^: EKG 1: Attestation: I personally reviewed and interpreted this EKG as follows: EKG interpretation date: 05/28/20 EKG interpretation time: 12:09 Prior EKG tracings: not available for review Interpretation: Normal sinus rhythm. Heart rate 70 bpm. Left atrial enlargement. No ST changes. Discharge Plan Discharge Patient Disposition: Home Clinical Impression: Benign paroxysmal positional vertigo Qualifiers: Laterality: bilateral Qualified Code(s): H81.13 - Benign paroxysmal vertigo, bilateral Condition: Stable Prescriptions: New meclizine 25 mg tablet 25 mg PO TID PRN (Reason: dizziness) Qty: 12 RF: 0 Continued olopatadine 0.7 % drops 1 drop ophthalmic (eye) DAILY RF: 0 hydrocodone-acetaminophen 5-325 mg tablet 1 tab PO Q8H PRN (Reason: Pain) RF: 0 paroxetine HCl [Paxil] 10 mg tablet 10 mg PO DAILY RF: 0 buspirone 15 mg tablet 15 mg PO BID RF: 0 glucosamine HCl 1,500 mg tablet 1,500 mg PO DAILY RF: 0 [place] Blue Speculator-3 + D3 350 mg- 1,000 unit capsule 1 cap PO DAILY RF: 0 calcium carbonate 500 mg calcium (1,250 mg) tablet 500 mg PO DAILY RF: 0 atorvastatin 20 mg tablet 20 mg PO DAILY RF: 0 lorazepam 0.5 mg tablet 0.5 mg PO BEDTIME PRN (Reason: Anxiety) RF: 0 donepezil 10 mg tablet See Rx Instructions .ROUTE .COMPLEX Qty: 30 RF: 4 carbidopa-levodopa 25-100 mg tablet See Rx Instructions .ROUTE .COMPLEX Qty: 90 RF: 4 levothyroxine 50 mcg capsule 50 mcg PO DAILY Qty: 24 RF: 3 levothyroxine 75 mcg capsule 75 mcg PO DAILY Qty: 8 RF: 3 Discontinued diphenhydramine HCl [Benadryl] 25 mg capsule 25 mg PO BID RF: 0 Discharge Orders: Discharge ED (Routine); Ordered 05/28/20 Ordered By: Isaac Rock Referrals: Nancy Lui DO [Primary Care Provider] - 1-3 days Discharge Diet: Usual diet Discharge Activity: Limit activity as instructed Patient Instructions: Benign Paroxysmal Positional Vertigo (ED) Activity Restrictions/Additional Instructions: Return for any new or worsening symptoms. Follow-up with your primary care provider within 3 days. Perform the exercises printed out and see if that gives improvement. You will be contacted by the case management department to schedule an appointment with physical therapy, neurology, ENT for further evaluation of your symptoms. Coding Level of Care Code ED Paper Steamer for Haven Angelo
[2020-05-28] MEDS: iohexol 350 mg/mL 100 mL Btl IV (14:55)
[2020-05-28] MEDS: LORazepam 2 mg/mL INJ 1 mL 1 MG IVP (15:26)
[2020-05-28 17:01] VITALS: BP 165/60; PULSE 75; RESP 15; O2SAT 96
--- NOTE | 2020-05-31 12:46 | DCPLANNER ---
cardroom manager had message to schedule a follow up appointment for patient with Dr. Fortune. cardroom manager called the office of Dr. Fortune, spoke with Tamara, gave clinic patients information. cardroom manager was told that patients information would be printed and reviewed. Clinic will call patient with appointment information. cardroom manager also had message to schedule a follow up appointment for patient with ENT. cardroom manager emailed patients information to both Bijal and Lauren at [facility] General Surgery. Patients information will be printed off and reviewed. Clinic will call patient with appointment information.
--- NOTE | 2020-05-31 16:11 | DCPLANNER ---
hospice case manager had message to arrange outpatient physical therapy for patient. hospice case manager faxed order to PT at the [facility] for outpatient services.
--- NOTE | 2020-06-01 07:42 | DCPLANNER ---
Patient has a follow up appointment scheduled for Tuesday, July 14, 2020 at 3:[address] Fortune. Clinic will call patient with appointment information. Patient has a follow up appointment scheduled for May at 3:[address] Caceres at the General Surgery clinic. Clinic will call patient with appointment information.
--- NOTE | 2020-06-08 13:27 | DCPLANNER ---
Patient was seen for physical therapy at the [facility].
--- NOTE | 2020-07-13 15:54 | DCPLANNER ---
Patient had a follow up appointment scheduled for 06.03.20 with ENT - patient did attend appointment.
--- NOTE | 2020-07-27 16:08 | DCPLANNER ---
Patient had a follow up appointment scheduled for 07.14.[address] Fortune - patient did attend appointment.
== END 2020-05-28 17:02 | disposition home or self-care (01) ==
PROVIDERS: Emergency Provider Family Medicine; PCP Family Medicine
DX: H81.13 Benign paroxysmal vertigo, bilateral (principal); G31.83 Neurocognitive disorder with Lewy bodies; F02.80 Dementia in other diseases classified elsewhere, unspecified severity, without behavioral disturbance, psychotic disturbance, mood disturbance, and anxiety; E78.5 Hyperlipidemia, unspecified; G20 Parkinson's disease; Z87.891 Personal history of nicotine dependence; I70.0 Atherosclerosis of aorta; Z79.899 Other long term (current) drug therapy
CPT/HCPCS: 12345; 70450; 70496; 70498; 71045; 80053; 80306; 81001; 85025; 85610; 85730; 93005; 96374; 96375; 99283; 99284; J2060; J2405; J8597; Q9967

== ENCOUNTER 2020-06-03 06:00 | Outpatient (RCR) | payer MEDICARE, MEDICAID, SELFPAY | END 2020-06-06 23:59 | disposition home or self-care (01) | LOC: SPT 06:00 | PROVIDERS: PCP Family Medicine; Referring Provider Family Medicine; Visit Provider Family Medicine | DX: H81.10 Benign paroxysmal vertigo, unspecified ear (principal) | CPT/HCPCS: 95992; 97162 ==

== ENCOUNTER 2020-06-07 06:00 | Outpatient (RCR) | payer MEDICARE, MEDICAID, SELFPAY | END 2020-07-04 23:59 | disposition home or self-care (01) | LOC: SPT 06:00 | PROVIDERS: PCP Family Medicine; Referring Provider Family Medicine; Visit Provider Family Medicine | DX: H81.10 Benign paroxysmal vertigo, unspecified ear (principal) | CPT/HCPCS: 95992 ==

== ENCOUNTER → 2020-07-14 15:42 | Outpatient (BNVA) | payer MEDICARE, MEDICAID, SELFPAY | PROVIDERS: PCP Family Medicine; Visit Provider Specialist | DX: G31.84 Mild cognitive impairment of uncertain or unknown etiology (principal); R25.1 Tremor, unspecified; Z87.891 Personal history of nicotine dependence | CPT/HCPCS: 99213 ==

== ENCOUNTER 2020-07-20 15:56 | Outpatient (CLI) | payer MEDICARE, MEDICAID, SELFPAY ==
[2020-07-20 17:19] LABS: Free T4 Free Thyroxine 1.17 ng/dL (0.82-1.77); Thyroid Stimulating Hormone 3.64 uIU/mL (0.27-4.20)
== END 2020-07-20 15:57 | disposition home or self-care (01) ==
PROVIDERS: PCP Family Medicine; Visit Provider Internal Medicine
DX: E03.9 Hypothyroidism, unspecified (principal)
CPT/HCPCS: 36415; 84439; 84443

== ENCOUNTER → 2020-07-27 14:49 | Outpatient (BNVA) | payer MEDICARE, MEDICAID, SELFPAY | PROVIDERS: PCP Family Medicine; Visit Provider Internal Medicine | DX: E03.9 Hypothyroidism, unspecified (principal) | CPT/HCPCS: 99214 ==

== ENCOUNTER → 2021-04-14 13:37 | Outpatient (BNVA) | payer MEDICARE, MEDICAID, SELFPAY | PROVIDERS: PCP Family Medicine; Visit Provider Specialist | DX: G20 Parkinson's disease (principal); R41.3 Other amnesia; Z71.85 Encounter for immunization safety counseling | CPT/HCPCS: 96116; 99214 ==

== ENCOUNTER → 2022-04-12 15:06 | Outpatient (BNVA) | payer MEDICARE, MEDICAID, SELFPAY | PROVIDERS: PCP Family Medicine; Visit Provider Specialist | DX: G20 Parkinson's disease (principal) | CPT/HCPCS: 99213 ==

== ENCOUNTER → 2023-04-10 14:47 | Outpatient (BNVA) | payer MEDICARE, MEDICAID, SELFPAY | PROVIDERS: PCP Family Medicine; Visit Provider Specialist | DX: G20.A1 Parkinson's disease without dyskinesia, without mention of fluctuations (principal); G31.84 Mild cognitive impairment of uncertain or unknown etiology | CPT/HCPCS: 99213 ==

== ENCOUNTER → 2024-04-17 09:24 | Outpatient (BNVA) | payer MEDICARE, MEDICAID, SELFPAY | PROVIDERS: PCP Family Medicine; Visit Provider Specialist | DX: G20.A1 Parkinson's disease without dyskinesia, without mention of fluctuations (principal); G31.84 Mild cognitive impairment of uncertain or unknown etiology | CPT/HCPCS: 99213 ==

== ENCOUNTER → 2024-12-31 15:22 | Outpatient (BNVA) | payer OTHER, MEDICAID, SELFPAY | PROVIDERS: PCP Family Medicine; Visit Provider Podiatrist Foot & Ankle Surgery | DX: E11.8 Type 2 diabetes mellitus with unspecified complications (principal); L60.0 Ingrowing nail; L03.031 Cellulitis of right toe | CPT/HCPCS: 99204 ==

== ENCOUNTER → 2025-01-15 14:06 | Outpatient (BNVA) | payer OTHER, MEDICAID, SELFPAY | PROVIDERS: PCP Family Medicine; Visit Provider Podiatrist Foot & Ankle Surgery | DX: L60.0 Ingrowing nail (principal); L03.031 Cellulitis of right toe; E11.8 Type 2 diabetes mellitus with unspecified complications | CPT/HCPCS: 11730; 11750; 99214; J9999 ==

== ENCOUNTER → 2025-01-27 11:11 | Outpatient (BNVA) | payer OTHER, MEDICAID, SELFPAY | PROVIDERS: PCP Family Medicine; Visit Provider Podiatrist Foot & Ankle Surgery | DX: E11.8 Type 2 diabetes mellitus with unspecified complications (principal); L60.0 Ingrowing nail; L03.031 Cellulitis of right toe | CPT/HCPCS: 99213 ==

== ENCOUNTER → 2025-03-17 10:26 | Outpatient (BNVA) | payer OTHER, MEDICAID, SELFPAY | PROVIDERS: PCP Family Medicine; Visit Provider Podiatrist Foot & Ankle Surgery | DX: E11.8 Type 2 diabetes mellitus with unspecified complications (principal); L60.0 Ingrowing nail; L03.031 Cellulitis of right toe; E11.621 Type 2 diabetes mellitus with foot ulcer; L97.522 Non-pressure chronic ulcer of other part of left foot with fat layer exposed | CPT/HCPCS: 99213 ==

== ENCOUNTER → 2025-04-07 09:06 | Outpatient (BNVA) | payer MEDICARE, MEDICAID, SELFPAY | PROVIDERS: PCP Family Medicine; Visit Provider Podiatrist Foot & Ankle Surgery | DX: E11.8 Type 2 diabetes mellitus with unspecified complications (principal); L60.0 Ingrowing nail; L03.031 Cellulitis of right toe; E11.621 Type 2 diabetes mellitus with foot ulcer; L97.522 Non-pressure chronic ulcer of other part of left foot with fat layer exposed | CPT/HCPCS: 99213 ==

== ENCOUNTER → 2025-04-13 14:43 | Outpatient (BNVA) | payer MEDICARE, MEDICAID, SELFPAY | PROVIDERS: PCP Family Medicine; Visit Provider Specialist | DX: G20.A1 Parkinson's disease without dyskinesia, without mention of fluctuations (principal); G31.84 Mild cognitive impairment of uncertain or unknown etiology | CPT/HCPCS: 99214 ==